=== PATIENT | male | born 1950 | race Caucasian/White ===

== ENCOUNTER 2023-05-02 10:08 | Emergency (ER) | payer MEDICARE ==
[~2023-05-02] VITALS: Ht 167.6 cm; Wt 83.9 kg
[2023-05-02] MEDS ORDERED: Magic Bullet10 MG PR (14:03)
[2023-05-02 15:30] VITALS: BP 143/75
== END 2023-05-02 15:48 | disposition home or self-care (01) ==
LOC: ER 10:08
DX: K59.00 Constipation, unspecified (principal); Z87.891 Personal history of nicotine dependence
CPT/HCPCS: 99283-25; A9270